=== PATIENT | female | born 1990 | race Caucasian/White ===

== ENCOUNTER 2023-12-17 05:24 | Emergency (ER) | payer OTHER ==
[~2023-12-17] VITALS: Ht 152.4 cm; Wt 59.1 kg
[2023-12-17 05:32] VITALS: TEMP 98.6
[2023-12-17 05:40] VITALS: BP 99/60; PULSE 76; RESP 16; O2SAT 100
[2023-12-17] MEDS: LIDOCAINE 1% 10 ML VIAL SQ ONE (06:29)
[2023-12-17] MEDS ORDERED: IBUP-1492 PO (06:49)
[2023-12-17] MEDS ORDERED: SULF-261 PO (06:49)
[2023-12-17] MEDS ORDERED: PERCT PO (06:49)
[2023-12-17] MEDS ORDERED: CEPH-558 PO (06:49)
[2023-12-17] MEDS: IBUPROFEN 600 MG TABLET PO ONE (07:13)
[2023-12-17] MEDS: OxyCODONE HCL/ACETAMINOPHEN 5-325 MG TABLET PO ONE (07:13)
== END 2023-12-17 07:26 | disposition home or self-care (01) ==
LOC: EMS 05:26
DX: L02.811 Cutaneous abscess of head [any part, except face] (principal)
CPT/HCPCS: 99283; 10060; J3490

== ENCOUNTER 2023-12-19 09:34 | Emergency (ER) | payer OTHER ==
[~2023-12-19] VITALS: Ht 144.8 cm; Wt 56.4 kg
[~2023-12-19 09:34] MED LIST: CEPH-558 PO; IBUP-1492 PO; PERCT PO; SULF-261 PO
[2023-12-19 09:35] VITALS: BP 105/51; PULSE 76; RESP 18; TEMP 98.2; O2SAT 99
== END 2023-12-19 11:28 | disposition home or self-care (01) ==
LOC: EMS 09:34
DX: L02.811 Cutaneous abscess of head [any part, except face] (principal)
CPT/HCPCS: 99281; Z7502